=== PATIENT | male | born 1990 | race Caucasian/White ===

== ENCOUNTER 2016-11-25 15:51 | Emergency (ER) | payer MEDICAID, OTHER ==
[2016-11-25] MEDS ORDERED: IBUPROFEN 800 MG TABLET PO STA (16:16)
[2016-11-25] MEDS ORDERED: IBUPROFEN 800 MG TABLET PO ONE (16:19)
--- NOTE | 2016-11-25 16:20 | ED Physician Documentation ---
PD HPI LOWER EXT INJURY - Stated complaint Stated Complaint: LEFT KNEE PX - Chief complaint Chief Complaint: Ext Problem - History obtained from History obtained from: Patient, Family - History of Present Illness PD HPI LOW EXT INJURY LOCATION: Left, Knee Type of injury: Twist Where injury occurred: Other (Last night) Timing - onset: How many days ago (1) Timing - duration: Days (1) Timing - details: Gradual onset Pain level max: 7 Pain level now: 5 Improved by: Rest, Ice, Immobilization Worsened by: Moving, Palpating Associated symptoms: Swelling. No: Weakness, Numbness, Tingling, Discolored Similar symptoms before: Has not had sx before Recently seen: Not recently seen - Additional information Additional information: Patient states that he stepped off of a curb going home last night from work when he felt a pop in his knee. Increased swelling and pain today. Was using a knee brace at home to help him walk. Has not taken anything for the pain. Review of Systems Constitutional: denies: Fever, Chills GI: denies: Vomiting Musculoskeletal: denies: Neck pain, Back pain Neurologic: denies: Focal weakness, Numbness PD PAST MEDICAL HISTORY - Past Medical History Past Medical History: No - Past Surgical History Past Surgical History: No - Present Medications Home Medications: Ambulatory Orders Medication Instructions Recorded Confirmed Loratadine [Claritin] 10 mg PO DAILY 11/25/16 11/25/16 Meloxicam [Mobic] 7.5 mg PO BID PRN #20 tablet 11/25/16 - Allergies Allergies/Adverse Reactions: Allergies Allergy/AdvReac Type Severity Reaction Status Date / Time Penicillins Allergy Hives Verified 11/25/16 15:59 - Social History Does the pt smoke?: No Smoking Status: Never smoker Does the pt drink ETOH?: Yes Does the pt have substance abuse?: No - Immunizations Immunizations are current?: No PD ED PE NORMAL - Vitals Vital signs reviewed: Yes - General General: Alert and oriented X 3, No acute distress - Neck Neck: Supple, no meningeal sign - Derm Derm: Warm and dry - Extremities Extremities: Other (Left knee - ACL, MCL, PCL, LCL intact. There is a mild joint effusion. Tenderness along the lateral joint line. Neurovascularly intact. Unable to fully test the meniscus secondary to pain.) - Neuro Neuro: Alert and oriented X 3 - Psych Psych: Normal mood, Normal affect Results - Vitals Vitals: Vital Signs - 24 hr 11/25/16 11/25/16 15:56 17:35 Temperature 36.8 C Heart Rate 105 H 88 Respiratory 14 16 Rate Blood Pressure 135/71 H 129/77 O2 Saturation 100 Oxygen O2 Source Room air - Rads (name of study) Left knee x-ray Radiology: Prelim report reviewed, EMP read contemporaneously, See rad report ( No acute bony abnormality or joint effusion. 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 ) PD MEDICAL DECISION MAKING - ED course Complexity details: reviewed results, re-evaluated patient, considered differential, d/w patient ED course: Patient is a 26-year-old male who presents to the emergency department with acute left knee pain. He is well-appearing, nontoxic. He may have some osteochondritis dissecans of the lateral femoral condyle. Likely that this represents a meniscus injury today. Placed in a knee immobilizer for comfort and given crutches. Recommended to him that he take his in the out of the immobilizer whenever possible and perform gentle range of motion. Also recommended that he should be out of the knee immobilizer in 2-3 days after the swelling has decreased. Recommend that he follow-up with his doctor and possibly orthopedics as needed. Patient counseled regarding signs and symptoms for which I believe and urgent re-evaluation would be necessary. Patient with good understanding of and agreement to plan and is comfortable going home at this time This document was made in part using voice recognition software. While efforts are made to proofread this document, sound alike and grammatical errors may occur. Departure - Departure Disposition: 01 Home, Self Care Clinical Impression: Left knee sprain Qualifiers: Encounter type: initial encounter Involved ligament of knee: unspecified ligament Qualified Code(s): S83.92XA - Sprain of unspecified site of left knee, initial encounter Condition: Good Instructions: ED Meniscal Injury Knee Poss Follow-Up: your,doctor in 1 week [Other] [facility] [Provider Group] [facility] [Provider Group] Prescriptions: Meloxicam [Mobic] 7.5 mg PO BID PRN #20 tablet PRN Reason: pain Comments: You need to follow-up with your doctor for further evaluation and care. You may have osteochondritis dissecans of your left lateral femoral condyle. This can be further evaluated with your doctor. Wear the knee immobilizer for the next 2-3 days and then start to walk on the knee as tolerated. Your blood pressure was elevated today on check in to the emergency department. This does not mean that you have hypertension, it is a common phenomenon to check into the emergency department and have elevated blood pressure. I recommend that you see your primary care physician within the week to have it rechecked when you're feeling better. Forms: Activity restrictions Discharge Date/Time: 11/25/16 17:35
--- NOTE | 2016-11-25 16:56 | XRAY Preliminary Report ---
Exam: XR Knee 4 View LT IMPRESSION: 1. No acute bony abnormality or joint effusion. 2. 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 [facility] SITE ID: [id number]
--- NOTE | 2016-11-25 16:59 | XRAY Report ---
EXAM: LEFT KNEE RADIOGRAPHY EXAM DATE: 11/25/2016 04:45 PM. CLINICAL HISTORY: Twisting injury. Pain and swelling. COMPARISON: None. TECHNIQUE: 4 views. FINDINGS: Bones: No acute traumatic or destructive bone abnormality. Subtle concavity in the lateral femoral co ndyle. Joints: Normal. No effusion. No subluxations. Soft Tissues: Normal. No soft tissue swelling. IMPRESSION: 1. No acute bony abnormality or joint effusion. 2. 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 [facility] Referring Provider Line: [phone] SITE ID: [id number]
[2016-11-25 17:41] VITALS: BP 129/77
== END 2016-11-25 17:35 | disposition home or self-care (01) ==
LOC: ED 15:51
DX: S83.92XA Sprain of unspecified site of left knee, initial encounter (principal); X50.0XXA Overexertion from strenuous movement or load, initial encounter; Y93.01 Activity, walking, marching and hiking; Y92.480 Sidewalk as the place of occurrence of the external cause; R03.0 Elevated blood-pressure reading, without diagnosis of hypertension
CPT/HCPCS: 73564; 99283; A9270